=== PATIENT | male | born 1955 ===

== ENCOUNTER 2024-12-18 09:56 | Outpatient (AMB) | payer MEDICARE, SELFPAY ==
--- OUTSIDE RECORDS SUMMARY | 2024-12-18 10:47 | XMS_ITS | Patient Health Record ---
[facility] Address [address] [place] [address] Care Team Providers Care Legal Officer Name Role Phone Mark Angel MD Primary Care Provider Graeme Mo Unavailable [phone] Reason For Referral No Information Medications Medication SIG (Take, Route, Frequency, Duration) Notes Start Date End Date Status Fish Oil 1000 mg Act yen Aspirin 160 mg Activ e Glucosamine Chondroitin Complx Active Niaspan 1000 mg Acti ve Mens Multi Vitamin & Mineral Active Simvastatin 10 mg Ac tive Nystatin twice daily Active Problems Problem Type SNOMED Code ICD Code Onset Dates Problem Status W/U Status Risk Notes 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 Problem Hammer toe (520966021) Hammer toe (735.4) Active confirmed Problem Keratoma (41224880) Keratoma (701.1) Active confirmed Plan Of Treatment Pending Test Test Name Order Date [id number] SKIN LESION 07/20/2011 [id number] SKIN LESION 09/30/2011 [id number] SKIN LESION 12/30/2011 Insurance Providers Payer Name Payer Address Payer Phone Subscriber Number Group Number Insured Name Patient Relationship to Insured Coverage Start Date Coverage End Date [employer] Preferred [address] [place] [phone] [id number] MAITE RICE Self - patient is the insured Medical (General) History Medical History History ICD Code back, hip, knee pain chicken pox measles mumps Cholesterol Surgical History Surgery Date(Month/Year) arm 1990 sural nerve taken from right ankle as do nor for ulnar nerve
--- OUTSIDE RECORDS SUMMARY | 2024-12-18 10:47 | XMS_ITS ---
Author Name [place] Organization Unknown Care Team Organization Name Specialty Phone Email Start Date End Da te [facility] Jake Flor Primary Care 03/10/2022 12/20/2023
== END 2024-12-18 10:15 | disposition home or self-care (01) ==
LOC: HO.HMGAL 09:56
PROVIDERS: PCP Internal Medicine; Visit Provider Registered Nurse Emergency
DX: J30.89 Other allergic rhinitis (principal)
CPT/HCPCS: 95117; 95165

== ENCOUNTER 2025-01-15 10:26 | Outpatient (AMB) | payer MEDICARE, SELFPAY ==
--- OUTSIDE RECORDS SUMMARY | 2025-01-15 13:17 | XMS_ITS | Patient Health Record ---
[facility] Address [address] [place] [address] Care Team Providers Care Car Retarder Operator Name Role Phone Mark Angel MD Primary Care Provider Graeme Mo Unavailable [phone] Reason For Referral No Information Medications Medication [...] Status Risk Notes Problem Congenital pes cavus (184436896) Cavus Foot (754.71) Active confirmed Problem Hammer toe (658794704) Hammer toe (735.4) Active confirmed Problem Keratoma (91101156) Keratoma (701.1) Active confirmed Plan Of Treatment Pending Test Test Name Order Date [id number] SKIN LESION 09/30/2011 [id number] SKIN LESION 12/30/2011 [id number] SKIN LESION 07/20/2011 Insurance Providers Payer Name Payer Address Payer Phone Subscriber Number Group Number Insured Name Patient Relationship to Insured Coverage Start Date Coverage End Date [employer] Preferred [address] [place] [phone] [id number] MAITE RICE Self - patient is the insured Medical (General) History Medical History History ICD Code back, hip, knee pain chicken pox measles mumps Cholesterol Surgical History Surgery Date(Month/Year) arm 1990 sural nerve taken from right ankle as do nor for ulnar nerve
== END 2025-01-15 10:41 | disposition home or self-care (01) ==
LOC: HO.HMGAL 10:26
PROVIDERS: PCP Internal Medicine; Visit Provider Registered Nurse Emergency
DX: J30.89 Other allergic rhinitis (principal)
CPT/HCPCS: 95117; 95165

== ENCOUNTER 2025-02-14 09:06 | Outpatient (AMB) | payer MEDICARE, SELFPAY ==
--- OUTSIDE RECORDS SUMMARY | 2025-02-14 09:57 | XMS_ITS | Patient Health Record ---
[facility] Address [address] [place] [address] Care Team Providers Care Community Health Educator Name Role Phone Mark Angel MD Primary Care Provider Graeme Mo Unavailable [phone] Reason For Referral No Information Medications Medication [...] Status Risk Notes Problem Congenital pes cavus (566018907) Cavus Foot (754.71) Active confirmed Problem Hammer toe (182907563) Hammer toe (735.4) Active confirmed Problem Keratoma (51436951) Keratoma (701.1) Active confirmed Plan Of Treatment Pending Test Test Name Order Date [id number] SKIN LESION 07/20/2011 [id number] SKIN LESION 09/30/2011 [id number] SKIN LESION 12/30/2011 Insurance Providers Payer Name Payer Address Payer Phone Subscriber Number Group Number Insured Name Patient Relationship to Insured Coverage Start Date Coverage End Date [employer] Preferred [address] [place] [phone] [id number] MAITE RICE Self - patient is the insured Medical (General) History Medical History History ICD Code back, hip, knee pain chicken pox measles mumps Cholesterol Surgical History Surgery Date(Month/Year) arm 1990 sural nerve taken from right ankle as do nor for ulnar nerve
== END 2025-02-14 09:07 | disposition home or self-care (01) ==
LOC: HO.HMGAL 09:06
PROVIDERS: PCP Internal Medicine; Visit Provider Registered Nurse Emergency
DX: J30.89 Other allergic rhinitis (principal)
CPT/HCPCS: 95117; 95165

== ENCOUNTER 2025-03-14 09:37 | Outpatient (AMB) | payer MEDICARE, SELFPAY ==
--- OUTSIDE RECORDS SUMMARY | 2025-03-14 10:55 | XMS_ITS | Patient Health Record ---
Author [facility] Address [address] [place] [address] Care Team Providers Care Poultry Offal Icer Name Role Phone Mark Angel MD Primary Care Provider Graeme Mo Unavailable [phone] Reason For Referral No Information Medications Medication [...] Status Risk Notes Problem Congenital pes cavus (011099909) Cavus Foot (754.71) Active confirmed Problem Hammer toe (106238816) Hammer toe (735.4) Active confirmed Problem Keratoma (16242234) Keratoma (701.1) Active confirmed Plan Of Treatment Pending Test Test Name Order Date [id number] SKIN LESION 07/20/2011 [id number] SKIN LESION 09/30/2011 [id number] SKIN LESION 12/30/2011 Insurance Providers Payer Name Payer Address Payer Phone Subscriber Number Group Number Insured Name Patient Relationship to Insured Coverage Start Date Coverage End Date [employer] Preferred [address] [place] [phone] [id number] MAITE RICE Self - patient is the insured Medical (General) History Medical History History ICD Code back, hip, knee pain chicken pox measles mumps Cholesterol Surgical History Surgery Date(Month/Year) arm 1990 sural nerve taken from right ankle as do nor for ulnar nerve
== END 2025-03-14 09:40 | disposition home or self-care (01) ==
LOC: HO.HMGAL 09:37
PROVIDERS: PCP Internal Medicine; Visit Provider Registered Nurse Emergency
DX: J30.89 Other allergic rhinitis (principal)
CPT/HCPCS: 95117; 95165

== ENCOUNTER 2025-04-09 10:16 | Outpatient (AMB) | payer MEDICARE, SELFPAY | END 2025-04-09 10:17 | disposition home or self-care (01) | LOC: HO.HMGAL 10:16 | PROVIDERS: PCP Physician Assistant Medical; Visit Provider Registered Nurse Emergency | DX: J30.89 Other allergic rhinitis (principal) | CPT/HCPCS: 95117; 95165 ==